=== PATIENT | female | born 1945 | race Caucasian/White ===

== ENCOUNTER 2019-05-02 05:27 | Inpatient (IN) | payer MEDICARE, OTHER ==
[~2019-05-02] VITALS: Ht 165.1 cm; Wt 68.0 kg
[2019-05-02] MEDS ORDERED: BACITRACIN 50000 UNITS/VIAL ONE (08:53)
[2019-05-02] MEDS ORDERED: FENTANYL PF 250MCG/5ML AMPUL ONE (08:57)
[2019-05-02] MEDS ORDERED: MIDAZOLAM HCL 2 MG/2ML VIAL ONE (08:57)
[2019-05-02] MEDS ORDERED: BUPIVACAINE 0.25% 75 MG/30 ML VIAL ONE (08:58)
[2019-05-02] MEDS ORDERED: ROCURONIUM BROMIDE 50 MG/5 ML ONE (08:58)
[2019-05-02] MEDS ORDERED: FAMOTIDINE/PF INJ 20 MG/2 ML VIAL IV ONE (08:58)
[2019-05-02] MEDS ORDERED: MEPERIDINE HCL/PF 100 MG/ML DISP.SYRIN ONE (08:58)
[2019-05-02] MEDS ORDERED: SEVOFLURANE 250 ML BOTTLE IH ONE (09:52)
[2019-05-02] MEDS ORDERED: TRANEXAMIC ACID 3,000 MG in SODIUM CHLORIDE IRRIG SOLUTION 70 ML IR ONE (10:00)
[2019-05-02] MEDS ORDERED: ZOFRAN 4mg/2ML IV PRN (12:30)
[2019-05-02] MEDS ORDERED: AMBIEN 5 MG TABLET PO PRN (12:30)
[2019-05-02] MEDS ORDERED: COLACE 250 MG CAPSULE PO PRN (12:30)
[2019-05-02] MEDS ORDERED: oxyCODONE IR immediate release 5 MG PO PRN ×2 (12:30)
[2019-05-02] MEDS ORDERED: SENOKOT 8.6 MG TABLET PO PRN (12:30)
[2019-05-02] MEDS ORDERED: HYDROMORPHONE 1 MG/1 ML DISP.SYRIN IV PRN (12:30)
[2019-05-02] MEDS ORDERED: ACETAMINOPHEN 325 MG TABLET PO PRN (12:30)
[2019-05-02] MEDS ORDERED: IV D5/0.45 NACL 1,000 ML IV PRN (12:30)
[2019-05-02] MEDS ORDERED: DULCOLAX 10 MG/SUPP.RECT RC PRN (12:30)
[2019-05-02 12:40] VITALS: BP 114/61
[2019-05-02] MEDS ORDERED: ESTR1PAT25 (12:54)
[2019-05-02] MEDS ORDERED: ASCO500C16 PO (12:54)
[2019-05-02] MEDS ORDERED: IBUP-1953 PO (12:54)
[2019-05-02] MEDS ORDERED: VALS80TA31 PO (12:54)
[2019-05-02 16:00] VITALS: BP 115/62
[2019-05-02] MEDS: ANCEF 1 G in IV D5W 50 ML IV SCH (16:41)
[2019-05-02] MEDS ORDERED: MENTHOL/CETYLPYRD (CEPACOL) 1 LOZ LOZENGE PO PRN (19:00)
[2019-05-02] MEDS ORDERED: CLONIDINE HCL 0.1 MG TABLET PO PRN (19:00)
[2019-05-02] MEDS ORDERED: diphenhydrAMINE HCL 25 MG CAPSULE PO PRN (19:00)
[2019-05-02 20:00] VITALS: BP 116/68
[2019-05-03] MEDS: ANCEF 1 G in IV D5W 50 ML IV SCH (01:33)
[2019-05-03 06:22] LABS: BASOPHILS % (AUTO) 0.2 % (0.0-2.0); EOSINOPHILS % (AUTO) 0.1 % (0.0-6.0); HEMATOCRIT 37 % (33-45); HEMOGLOBIN 12.5 g/dL (11.5-14.8); LYMPHOCYTES # (AUTO) 0.8 /CMM (0.8-4.8); LYMPHOCYTES % (AUTO) 9.6 % (20.0-44.0); MEAN CORPUSCULAR HGB CONC 34 g/dl (31.0-36.0); MEAN CORPUSCULAR VOLUME 96 fL (82-100); MONOCYTES # (AUTO) 0.8 /CMM (0.1-1.30); MONOCYTES % (AUTO) 9.6 % (2.0-12.0); NEUTROPHILS # (AUTO) 6.4 /CMM (1.8-8.9); NEUTROPHILS % (AUTO) 80.5 % (43.0-81.0); PLATELET COUNT (AUTO) 203 /CMM (150-450); RED BLOOD CELL COUNT(AUTO) 3.85 MIL/uL (4.0-5.2)
[2019-05-03 06:33] LABS: ALANINE AMINOTRANSFERASE 16 U/L (12-78); ALBUMIN 2.7 g/dL (3.4-5.0); ALKALINE PHOSPHATASE 38 U/L (46-116); ASPARTATE AMINOTRANSFERASE 16 U/L (15-37); BILIRUBIN,DIRECT 0.1 mg/dL (0.0-0.2); BILIRUBIN,TOTAL 0.6 mg/dL (0.2-1.0); CALCIUM, SERUM 7.9 mg/dL (8.5-10.1); CARBON DIOXIDE 23 mmol/L (21-32); CHLORIDE 106 mmol/L (98-107); CREATININE 0.5 mg/dL (0.6-1.3); GLUCOSE 133 mg/dL (74-106); MAGNESIUM 1.6 mg/dL (1.8-2.4); POTASSIUM 3.5 mmol/L (3.5-5.1); SODIUM SERUM 139 mmol/L (136-145); TOTAL PROTEIN, SERUM 5.8 g/dL (6.4-8.2); UREA NITROGEN, BLOOD 9 mg/dL (7-18)
[2019-05-03 06:36] LABS: CHOLESTEROL 150 mg/dL (<200); HDL CHOLESTEROL 63 mg/dL (40-60); LDL 81 mg/dL (0-99); THYROID STIMULATING HORMONE 0.364 uIU/mL (0.358-3.74); TRIGLYCERIDES 82 mg/dL (30-150)
[2019-05-03 08:00] VITALS: BP 120/67
[2019-05-03 08:23] VITALS: BP 120/67
[2019-05-03] MEDS ORDERED: VALSARTAN 80 MG TABLET PO SCH (09:00)
[2019-05-03] MEDS ORDERED: K PHOS NEUTRAL 250 MG TABLET PO ONE (09:00)
[2019-05-03] MEDS ORDERED: DOCUSATE SODIUM 100 MG CAPSULE PO SCH (09:00)
[2019-05-03] MEDS ORDERED: ASCORBIC ACID 500 MG TABLET PO SCH (09:00)
[2019-05-03] MEDS: Magnesium 1GM/D5W 100ML PREMIX 100 ML IV SCH ×2 (10:27→12:08)
== END 2019-05-03 13:20 | disposition home or self-care (01) | DRG 483 ==
LOC: DS 05:27 → MED 11:55
PROVIDERS: ADMIT Nurse Practitioner Acute Care; ATTEND Nurse Practitioner Acute Care
PROC: 0RRJ0JZ Replacement of Right Shoulder Joint with Synthetic Substitute, Open Approach (ICD-10-PCS; principal; 2019-05-02)
PROC: 0LS30ZZ Reposition Right Upper Arm Tendon, Open Approach (ICD-10-PCS; 2019-05-02)
DX: M19.011 Primary osteoarthritis, right shoulder (principal); I10 Essential (primary) hypertension; G56.03 Carpal tunnel syndrome, bilateral upper limbs
CPT/HCPCS: 36415; 80053-TC; 80061-TC; 80076-TC; 83735-TC; 84100-TC; 84443-TC; 85025-TC; 87081-TC; 88305-TC; 88311-TC; G0378; J0690; J2175; J2250; J2405; J2704; J2710; J2765; J3010; J3475; J3490; J7060